=== PATIENT | female | born 1950 | race Caucasian/White ===

== ENCOUNTER → 2017-06-21 | Outpatient (CLI) | payer OTHER ==
[~2017-06-21] VITALS: Ht 180.3 cm; Wt 89.8 kg
[~2017-06-21] MED LIST: ASPIR 8181 MG PO; GLUCOSAMIN-CHO1 EACH PO; LEVSIN0.125 MG SUBLING; LISINOPRIL10 MG PO; NORCO 5-325 TA1 EACH PO; ONDANSETRON HCL4 M2 PO; TASIGNA150 MG PO; VITAMIN B-12500 MCG PO; VITAMIN D31000 UNI2 PO; WELLBUTRIN 75 M75 M1 PO
--- NOTE | ~2017-06-21 | S ---
[facility] [place] [address] SURGICAL PATH RPT PROCEDURE Name: KYLIE CELIS Room #: REG [facility] [employer].#: [id number] Admission: 06/21/17 Date of : 52 Discharge: Report #: [id number] Path Case #: [id number] PATHOLOGY REPORT COLLECTION DATE: 06/21/2017 RECEIVED DATE: 06/21/2017 SUBMITTING PHYS: Dr. Ger Bone OTHER PHYS: Dr. Bob Craven SPECIMEN(S) RECEIVED: A.Bx of duodenum B.Bx of gastritis * * * * * * * * * * * * FINAL DIAGNOSIS: A. Small bowel, duodenum rule out sprue, endoscopic biopsy: - No diagnostic abnormalities present. B. Gastric mucosa, gastritis to rule out H. pylori, endoscopic biopsy: - Mild reactive gastropathy. - Negative for intestinal metaplasia or atrophy. - Negative for Helicobacter pylori. COMMENT: Helicobacter pylori immunohistochemical stain performed on block B1-negative. (IUV:pit; 06/23/2017) PATHOLOGIST: Janis Croft M.D. REPORT ELECTRONICALLY SIGNED BY: Janis Croft M.D. DATE/TIME: 06/23/2017 14:32 * * * * * * * * * * * * GROSS PATHOLOGY: A. Received in formalin labeled "Kylie Celis, BX of duodenum rule out sprue," are 3 segments of sheppard soft tissue measuring 1.0 x 0.2 x 0.2 cm in aggregate dimensions and ranging from 0.2 to 0.5 cm in maximum dimension. The specimen is submitted entirely in cassette A1. B. Received in formalin labeled "Kylie Celis, BX of gastritis to rule out H. pylori," are 4 segments of sheppard soft tissue measuring 1.3 x 0.2 x 0.2 cm in aggregate dimensions and ranging from 0.1 to 0.5 cm in maximum dimension. The specimen is submitted entirely in cassette B1. (KARINA; 06/22/2017) [address] [address] SURGICAL PATH RPT PROCEDURE Name: KYLIE CELIS Room #: [facility].#: [id number] Admission: 06/21/17 Date of : 52 Discharge: Report #: [id number] Path Case #: [id number] CLINICAL HISTORY: Abdominal pain INITIAL CPT CODE(S): A; 55381 B; 50894, 41898 Professional services performed by [facility] at [address], [place] [address] Technical services performed by [facility] at [address] [place] [address], [facility] [address] [address]. [facility] [address] [place] [id number] PHONE: [phone] DIRECTOR: Kenji Falcon M.D. * * * END OF REPORT * * *
== END | disposition home or self-care (01) ==
LOC: GI 08:59
DX: K31.9 Disease of stomach and duodenum, unspecified (principal); I10 Essential (primary) hypertension; K21.9 Gastro-esophageal reflux disease without esophagitis; F32.89 Other specified depressive episodes; F41.8 Other specified anxiety disorders; Z85.6 Personal history of leukemia; Z90.49 Acquired absence of other specified parts of digestive tract; Z88.8 Allergy status to other drugs, medicaments and biological substances; Z79.899 Other long term (current) drug therapy; Z87.891 Personal history of nicotine dependence; Z79.82 Long term (current) use of aspirin
CPT/HCPCS: 62110; 62900

== ENCOUNTER → 2019-02-28 | Outpatient (CLI) | payer OTHER | LOC: CAT 13:49 | DX: Z13.6 Encounter for screening for cardiovascular disorders (principal); E78.00 Pure hypercholesterolemia, unspecified; I25.10 Atherosclerotic heart disease of native coronary artery without angina pectoris ==

== ENCOUNTER → 2020-09-01 | Outpatient (CLI) | payer OTHER | LOC: SJCVCIMAG 09:23 | PROVIDERS: ATTEND Internal Medicine Cardiovascular Disease | DX: I25.119 Atherosclerotic heart disease of native coronary artery with unspecified angina pectoris (principal); I10 Essential (primary) hypertension; Z87.891 Personal history of nicotine dependence; Z82.49 Family history of ischemic heart disease and other diseases of the circulatory system ==

== ENCOUNTER → 2020-10-13 | Outpatient (CLI) | payer OTHER | LOC: SJCVC 07:57 | PROVIDERS: ATTEND Internal Medicine Cardiovascular Disease | DX: R94.5 Abnormal results of liver function studies (principal) ==

== ENCOUNTER → 2021-10-26 | Outpatient (CLI) | payer OTHER | LOC: SJCVC 13:09 | PROVIDERS: ATTEND Internal Medicine Cardiovascular Disease | DX: R93.1 Abnormal findings on diagnostic imaging of heart and coronary circulation (principal); I10 Essential (primary) hypertension; E78.5 Hyperlipidemia, unspecified; C92.90 Myeloid leukemia, unspecified, not having achieved remission; R94.5 Abnormal results of liver function studies; M67.40 Ganglion, unspecified site; Z87.891 Personal history of nicotine dependence; Z79.82 Long term (current) use of aspirin; Z79.899 Other long term (current) drug therapy; Z82.49 Family history of ischemic heart disease and other diseases of the circulatory system; Z88.1 Allergy status to other antibiotic agents ==